=== PATIENT | male | born 1940 | race Caucasian/White ===

== ENCOUNTER → 2016-03-14 | Outpatient (CLI) | payer OTHER ==
--- NOTE | 2016-03-14 14:48 | US ---
Limited Abdominal Ultrasound INDICATION: Status post bilateral inguinal hernia repair. Umbilical pain. Rule out hernia. TECHNIQUE: Limited bilateral inguinal ultrasound is performed. FINDINGS: Bilateral inguinal area is scanned. No evidence for fascial layer disruption or recurrence of hernia on either side. No fluid collection. IMPRESSION: No evidence for hernia on either side.
== END ==
LOC: FIMAGING 09:01
PROVIDERS: ATTEND Surgery
DX: R10.33 Periumbilical pain (principal)